=== PATIENT | male | born 1985 | race Two or more races ===

== ENCOUNTER 2017-07-04 19:51 | Emergency (ER) | payer SELFPAY ==
[2017-07-04 19:59] VITALS: BMI 25.9
[2017-07-04] MEDS ORDERED: NS 1000 ML 1,000 ML IV ONE (20:26)
--- NOTE | 2017-07-04 20:26 | DR.GENAD ---
HPI - PCP Primary Care Physician: seema - HPI Comment HPI Comment: NVD after eating [place] buffet at 4pm today. No fevers, no sick contacts. - Complaint/Symptoms Chief Complaint:: pt ate at buffet at around 4 pm and now having n/v/d Self Treatment fo Chief Complaint: none - Nurses notes reviewed Nurses Notes Review: Yes - Source History Provided: Patient - Mode of Arrival Mode of Arrival: Ambulatory - Timing Onset of Chief Complaint: 07/04/17 PMH - PMH Past Medical History: No (no sig PMH) Past Surgical History: No - Family History History of Family Medical Conditions: No - Social History Does patient currently use any type of tobacco product: No Have you used tobacco products in the last 12 months: No Type of Tobacco Use: None Does any household member use tobacco: No Alcohol Use: Occasionally Do you use any recreational Drugs:: No Lives With: Family Lives Where: Home - infectious screening In the last 2 months have you had wt loss of >10#?: NO Have you had fever, night sweats or hemotysis?: No Have you traveled outside the country in the last 6 months?: No Isolation: Standard ROS - Review of Systems Constitutional: No Symptoms Reported, Loss of Appetite Eyes: No Symptoms Reported ENTM: No Symptoms Reported Respiratoy: No Symptoms Reported Cardiovascular: No Symptoms Reported Gastrointestinal/Abdominal: No Symptoms Reported, Abdominal Pain, Diarrhea, Nausea, Vomiting Genitourinary: No Symptoms Reported Neurological: No Symptoms Reported Musculoskeletal: No Symptoms Reported Integumentary: No Symptoms Reported Hematologic/Lymphatic: No Symptoms Reported Endocrine: No Symptoms Reported Psychiatric: No Symptoms Reported All Other Systems: Reviewed and Negative PE - Vital Signs Vitals: Temperature 99 F Pulse Rate 105 Respiratory Rate 18 Blood Pressure 162/93 O2 Sat by Pulse Oximetry 98 - General Limitations: No Limitations General Appearance: Alert, In No Apparent Distress - Head Head Exam: Normal Inspection - Eyes Eye exam: Normal Appearance - ENT ENT Exam: Normal Exam, Normal Oropharynx Throat Exam: Normal Inspection - Neck Neck Exam: Normal Inspection, Trachea Midline - Chest Chest Inspection: Normal Inspection - Respiratory Respiratory Exam: Normal Lung Sounds Bilat Respiratory Exam: Bilateral Clear to Auscultation - Cardiovascular Cardiovascular Exam: Regular Rate, Normal Rhythm, Tachycardia (rate 105 on triage), Normal Heart Sounds. negative: Systolic Murmur, Diastolic Murmur - Abdominal Exam Abdominal Exam: Normal Inspection, Normal Bowel Sounds, Soft, Tenderness (mild generalized TTP, nothing focal). negative: Distention, Guarding, Rebound Abdominal Tenderness: Diffuse, Mild - Extremities Extremities Exam: Normal Inspection, Full ROM, Tenderness - Back Back Exam: negative: (R) CVA Tenderness, (L) CVA Tenderness - Neurologic Neurological Exam: Alert, Oriented X3 - Psychiatric Psychiatric Exam: Normal Affect - Skin Skin Exam: Warm, Dry, Intact ROR - Labs Reviewed Laboratory Results Reviewed?: Yes (reviewed w/pt and family) Result Diagrams: 07/04/17 20:35 07/04/17 20:35 Laboratory: WBC 10.8 X10^3/uL (3.6-10.0) H 07/04/17 20:35 RBC 4.52 X10^6/uL (4.7-6.0) L 07/04/17 20:35 Hgb 14.6 g/dL (13.5-18.0) 07/04/17 20:35 Hct 41.8 % (42.0-54.0) L 07/04/17 20:35 MCV 92.3 fL (80.0-100.0) 07/04/17 20:35 MCH 32.2 pg (27.0-34.0) 07/04/17 20:35 MCHC 34.8 g/dL (33.0-35.0) 07/04/17 20:35 RDW 12.8 % (11.6-16.5) 07/04/17 20:35 Plt Count 230 X10^3/uL (150.0-450.0) 07/04/17 20:35 MPV 9.2 fL (7.4-11.0) 07/04/17 20:35 Neut % (Auto) 78.2 % (42.0-75.0) H 07/04/17 20:35 Lymph % (Auto) 11.8 % (21.0-51.0) L 07/04/17 20:35 [place] % (Auto) 8.8 % (0.0-13.0) 07/04/17 20:35 Eos % (Auto) 0.3 % (0.9-2.9) L 07/04/17 20:35 Baso % (Auto) 0.9 % (0.2-1.0) 07/04/17 20:35 Neut # (Auto) 8.5 x10^3/uL (2.2-4.8) H 07/04/17 20:35 Lymph # (Auto) 1.3 X10^3/uL (1.3-2.9) 07/04/17 20:35 [place] # (Auto) 1.0 x10^3/uL (0.3-0.8) H 07/04/17 20:35 Eos # (Auto) 0.0 x10^3/uL (0.0-0.2) 07/04/17 20:35 Baso # (Auto) 0.1 X10^3/uL (0.0-0.1) 07/04/17 20:35 Absolute Nucleated RBC 0.0 /100WBC 07/04/17 20:35 Sodium 139 mmol/L (136-145) 07/04/17 20:35 Corrected Sodium 140 mmol/L (136-145) 07/04/17 20:35 Potassium 3.7 mmol/L (3.5-5.1) 07/04/17 20:35 Chloride 101 mmol/L (98-107) 07/04/17 20:35 Carbon Dioxide 27.8 mmol/L (21-32) 07/04/17 20:35 BUN 17 mg/dL (7-18) 07/04/17 20:35 Creatinine 1.20 mg/dL (0.70-1.30) 07/04/17 20:35 Est GFR (MDRD) Af Amer > 60 (>60) 07/04/17 20:35 Est GFR (MDRD) Non-Af > 60 (>60) 07/04/17 20:35 Glucose 122 mg/dL (65-99) H 07/04/17 20:35 Calcium 8.5 mg/dL (8.5-10.1) 07/04/17 20:35 Corrected Calcium TNP 07/04/17 20:35 Total Bilirubin 0.40 mg/dL (0.2-1.0) 07/04/17 20:35 AST 107 Units/L (15-37) H 07/04/17 20:35 ALT 82 Units/L (12-78) H 07/04/17 20:35 Alkaline Phosphatase 90 Units/L (46-116) 07/04/17 20:35 Total Protein 8.1 g/dL (6.4-8.2) 07/04/17 20:35 Albumin 4.0 g/dL (3.4-5.0) 07/04/17 20:35 Globulin 4.1 g/dL (2.5-4.5) 07/04/17 20:35 Albumin/Globulin Ratio 1.0 Ratio (1.1-2.1) L 07/04/17 20:35 Amylase 53 Units/L (25-115) 07/04/17 20:35 Lipase 175 Units/L (73-393) 07/04/17 20:35 - XRAY XRAY Interpreted by: Radiologist XRAY Findings: nothing acute on flat and upright abd Xray - Diagnosis Discharge Problem: Gastroenteritis - Discharge Plan Disposition: 01 HOME, SELF-CARE Condition: Stable Prescriptions: Ondansetron [Zofran ODT 8 mg] 8 mg PO Q8H PRN #12 tab PRN Reason: Nausea/Vomiting - Follow ups/Referrals Follow ups/Referrals: NFD,None [Primary Care Provider] - 3 days - Instructions Instructions: Nausea and Vomiting, Adult
[2017-07-04] MEDS ORDERED: ZOFRAN INJ 4 MG VIAL IVP ONE (20:27)
[2017-07-04 20:44] LABS: BASOPHILS # (AUTO) 0.1 X10^3/uL (0.0-0.1); BASOPHILS % (AUTO) 0.9 % (0.2-1.0); EOSINOPHILS % (AUTO) 0.3 % (0.9-2.9); HEMATOCRIT 41.8 % (42.0-54.0); HEMOGLOBIN 14.6 g/dL (13.5-18.0); LYMPHOCYTES # (AUTO) 1.3 X10^3/uL (1.3-2.9); LYMPHOCYTES % (AUTO) 11.8 % (21.0-51.0); MEAN CORPUSCULAR HEMOGLOBIN 32.2 pg (27.0-34.0); MEAN CORPUSCULAR HGB CONC 34.8 g/dL (33.0-35.0); MEAN CORPUSCULAR VOLUME 92.3 fL (80.0-100.0); MEAN PLATELET VOLUME 9.2 fL (7.4-11.0); MONOCYTES % (AUTO) 8.8 % (0.0-13.0); NEUTROPHILS # (AUTO) 8.5 x10^3/uL (2.2-4.8); NEUTROPHILS % (AUTO) 78.2 % (42.0-75.0); PLATELET COUNT 230 X10^3/uL (150.0-450.0); RED BLOOD COUNT 4.52 X10^6/uL (4.7-6.0); RED CELL DISTRIBUTION WIDTH 12.8 % (11.6-16.5); WHITE BLOOD COUNT 10.8 X10^3/uL (3.6-10.0)
[2017-07-04] MEDS ORDERED: ZOFRAN INJ 4 MG VIAL ONE (20:53)
[2017-07-04] MEDS ORDERED: NS 1000 ML 1,000 ML ONE (20:53)
[2017-07-04 20:59] LABS: ALANINE AMINOTRANSFERASE 82 Units/L (12-78); ALKALINE PHOSPHATASE 90 Units/L (46-116); AMYLASE 53 Units/L (25-115); ASPARTATE AMINO TRANSFERASE 107 Units/L (15-37); BLOOD UREA NITROGEN 17 mg/dL (7-18); CALCIUM 8.5 mg/dL (8.5-10.1); CARBON DIOXIDE 27.8 mmol/L (21-32); CHLORIDE 101 mmol/L (98-107); COR NA(FOR HYPERGLY) 140 mmol/L (136-145); LIPASE 175 Units/L (73-393); SODIUM 139 mmol/L (136-145); TOTAL PROTEIN 8.1 g/dL (6.4-8.2); eGFR BLACK RACES > 60 (>60); eGFR NON BLACK RACES > 60 (>60)
--- NOTE | 2017-07-04 21:11 | RAD ---
HISTORY: Abdominal Pain Study: Frontal view of the chest, flat and upright views of the abdomen Comparison: None. Findings: Cardiomediastinal silhouette is normal in size. No focal consolidations, pleural effusions or pneumot horax. Osseous structures are without acute abnormality. Flat and upright views of the abdomen demonstrates a normal bowel gas pattern. No free air. No abnor mal calcifications or abnormal soft tissue shadows. No acute bony abnormalities. IMPRESSION: 1. No acute cardiopulmonary disease. 2. No evidence for acute abdominal pathology. Reported By:
[2017-07-04 21:22] LABS: BILIRUBIN,URINE NEGATIVE (NEGATIVE); BLOOD/HEMOGLOBIN,URINE NEGATIVE (NEGATIVE); GLUCOSE, URINE NEGATIVE (NEGATIVE); KETONES,URINE NEGATIVE (NEGATIVE); LEUKOCYTE ESTERASE ,URINE NEGATIVE (NEGATIVE); NITRITES,URINE NEGATIVE (NEGATIVE); PH,URINE 6.5 (5.0 - 8.0); PROTEIN,URINE 2+ (NEGATIVE); UROBILINOGEN,URINE NORMAL (NORMAL)
[2017-07-04 21:39] LABS: APPEARANCE,URINE CLEAR (CLEAR); BACTERIA,URINE NEGATIVE /HPF (NEGATIVE); COLOR,URINE YELLOW (YELLOW); RBC,URINE 0-2 /HPF (NONE SEEN); SQUAMOUS EPITHELIAL CELL,UR RARE /HPF (NEGATIVE)
[2017-07-04 22:05] VITALS: BP 138/76
== END 2017-07-04 22:05 | disposition home or self-care (01) ==
LOC: ER 19:51
DX: K52.89 Other specified noninfective gastroenteritis and colitis (principal)
CPT/HCPCS: 36415; 74022; 80053; 81001; 82150; 83690; 85025; 96365; 96374; 99283; A4216; A4222; J2405